=== PATIENT | male | born 1985 | race Caucasian/White ===

== ENCOUNTER 2017-04-12 16:55 | Emergency (ER) | payer OTHER ==
[~2017-04-12] VITALS: Ht 188 cm; Wt 117.9 kg
== END 2017-04-12 19:05 | disposition home or self-care (01) ==
LOC: CED 16:55
DX: F41.1 Generalized anxiety disorder (principal); F17.200 Nicotine dependence, unspecified, uncomplicated; Z88.8 Allergy status to other drugs, medicaments and biological substances
CPT/HCPCS: 99283